=== PATIENT | female | born 2000 | race Caucasian/White ===

== ENCOUNTER 2021-06-09 22:03 | Emergency (ER) | payer OTHER ==
[2021-06-10 00:57] LABS: HEMOGLOBIN 13.5 gm/dl (12.3-15.3); RED BLOOD COUNT 4.76 M/UL (4.00-5.10); WHITE BLOOD COUNT 8.1 K/UL (4.5-11.0)
[2021-06-10 02:16] LABS: BUN/CREATININE RATIO 33 (0-10)
[2021-06-10] MEDS ORDERED: ZOFRAN ODT 4 MG4 MG SL (07:44)
[2021-06-12 05:11] LABS: HBSAG SCREEN Negative (Negative); HEP A AB, IGM Negative (Negative); HEP B CORE AB, IGM Negative (Negative); HEP C VIRUS AB 0.2 (0.0-0.9)
== END 2021-06-10 08:01 | disposition home or self-care (01) ==
LOC: ER1 22:03
PROVIDERS: Emergency Medicine
DX: K75.9 Inflammatory liver disease, unspecified (principal); Z20.822 Contact with and (suspected) exposure to COVID-19
CPT/HCPCS: 80053; 80074; 80307; 81001; 83690; 84703; 85025; 85610; 85730; 96365; 96375; 99284; G0480; J2405; J7030; Q9967; U0002